=== PATIENT | female | born 1945 | race Caucasian/White ===

== ENCOUNTER → 2016-08-31 | Outpatient (CLI) | payer MEDICARE ==
--- NOTE | 2016-09-01 11:10 | MM ---
Reason for exam: screening (asymptomatic). Last mammogram was performed 6 months ago. History: Patient is postmenopausal. Benign MG stereo VAD BX LT of the left breast, September 04, 2015. Physical Findings: A clinical breast exam by your physician is recommended on an annual basis and results should be correlated with mammographic findings. MG 3D Screening Mammo W/Cad Bilateral CC and MLO view(s) were taken. Prior study comparison: August 25, 2015, bilateral MG 3d screening mammo w/cad. August 01, 2013, bilateral digital screening mammo w/CAD. There are scattered fibroglandular densities. Finding: There are typically benign vascular, round calcifications in both breasts. Previous mammotome biopsy in the left breast. There is no discrete abnormality. ASSESSMENT: Benign, BI-RAD 2 RECOMMENDATION: Routine screening mammogram of both breasts in 1 year.
== END | disposition home or self-care (01) ==
LOC: RADMAMWWP 09:41
PROVIDERS: ATTEND Family Medicine
DX: Z12.31 Encounter for screening mammogram for malignant neoplasm of breast (principal)
CPT/HCPCS: 77063; G0202

== ENCOUNTER → 2016-09-16 | Outpatient (CLI) | payer MEDICARE ==
--- NOTE | 2016-09-16 20:21 | PN ---
DATE OF SERVICE: 09/16/2016 70-year-old lady has been followed in the sleep center for treatment of obstructive sleep apnea-hypopnea syndrome. Patient continued to use her CPAP equipment every night for the whole night without significant problems. No snoring with the machine. No sleepiness during the day. [place] Sleepiness Scale is 4. I have seen the patient's CPAP unit. CPAP pressure is 8 cm of water. ( ) and automatic regimen. Usage is 100% of the time more than 4 hours. Leak from the mask is up to 10 L/min, which is acceptable. Apnea-hypopnea index reading is 2.3 for the last month, which is normal range. Medications: 1. Aspirin. 2. ( ). 3. Flonase. 4. Hydrochlorothiazide. 5. ( ). 6. Lisinopril. 7. Methotrexate. 8. Norvasc. 9. Tylenol. 10. Vitamin D3 supplement. 11. Zantac. During the physical exam, the patient is in no distress. BP 141/64, HR 66, RR 16. Height 64 inches. Weight 185. BMI 31.7. Temperature 97.7. Oxygen saturation at room air 95%. HEENT: Oropharynx moderately low position of soft palate. ABDOMEN: Slightly obese. GENERAL: A pleasant patient without any distress. VITAL SIGNS: BP, HR, RR, weight, body mass index. HEENT: PERRLA, EOMI. Evaluation of oropharynx showed tongue protrudes midline. Neck: Supple. No JVD. Thyroid is not palpable. LUNGS: Clear to percussion and to auscultation. Good air exchange. No wheezing or rhonchi. HEART: S1, S2 regular. No murmurs, gallops, or rubs. EXTREMITIES: No clubbing or cyanosis. PLATINUMSMITH: Awake, alert, and oriented x3. Cranial nerves 2 to 7 intact. There is no fasciculation or atrophy noted. No focal deficits observed. IMPRESSION: oriented x3. Cranial nerves II to VII intact moist and pink. IMPRESSION: 1. Obstructive sleep apnea-hypopnea syndrome. Patient demonstrated 100% compliance with treatment benefiting from treatment. 2. Rheumatoid arthritis. 3. Hypertension. 4. Acid reflux. 5. Mild obesity. Patient increased her weight by 4 pounds comparing with the previous visit one year ago. PLAN: 1. Continue treatment with CPAP every night for the whole night. 2. Losing weight. 3. Sleep hygiene with regular time in bed for at least 8 hours. 4. No driving if feeling any sleepiness. 5. Prescription for all necessary CPAP supplies, including mask, tube and filters. Thank you very much for allowing me to participate in the patient's care. Sincerely, Jimmy Godinez MD, PhD, FAASM. Diplomat of [place] [employer], Sleep Medicine Board by [place] [employer] [place] [employer] Assistant Producer of [facility] [place]
== END | disposition home or self-care (01) ==
LOC: SLEEP 14:37
PROVIDERS: ATTEND Internal Medicine
DX: G47.33 Obstructive sleep apnea (adult) (pediatric) (principal); M06.9 Rheumatoid arthritis, unspecified; I10 Essential (primary) hypertension; K21.9 Gastro-esophageal reflux disease without esophagitis; E66.9 Obesity, unspecified; Z68.31 Body mass index [BMI] 31.0-31.9, adult; Z79.899 Other long term (current) drug therapy

== ENCOUNTER → 2017-11-24 | Outpatient (CLI) | payer MEDICARE ==
--- NOTE | 2017-11-28 08:18 | MM ---
Reason for exam: screening (asymptomatic). Last mammogram was performed 1 year and 3 months ago. History: Patient is postmenopausal. Benign MG stereo VAD BX LT of the left breast, September 04, 2015. Physical Findings: A clinical breast exam by your physician is recommended on an annual basis and results should be correlated with mammographic findings. MG 3D Screening Mammo W/Cad Bilateral CC and MLO view(s) were taken. Prior study comparison: August 31, 2016, bilateral MG 3d screening mammo w/cad. March 10, 2016, left breast MG 3d diag mammo w/cad LT. The breast tissue is heterogeneously dense. This may lower the sensitivity of mammography. Finding: There is a probable benign, high architectural distortion located 5 cm from the nipple in the upper quadrant, middle position of the right breast, spreads out on tomography, likely present previously, not seen on CC view. New finding since August 31, 2016 and March 10, 2016. ASSESSMENT: Probably benign, BI-RAD 3 RECOMMENDATION: Follow-up diagnostic mammogram of the right breast in 6 months.
== END | disposition home or self-care (01) ==
LOC: RADMAMWWP 10:05
PROVIDERS: ATTEND Family Medicine
DX: Z12.31 Encounter for screening mammogram for malignant neoplasm of breast (principal)
CPT/HCPCS: 77063; 77067

== ENCOUNTER → 2017-11-24 | Outpatient (CLI) | payer MEDICARE ==
--- NOTE | 2017-11-24 12:21 | SFUN ---
SLEEP CENTER FOLLOW UP NOTE DATE OF SERVICE: 11/24/2017 This 72-year-old lady who looks younger than her age, has been followed in the sleep center for obstructive sleep apnea-hypopnea syndrome. The patient continued to use her CPAP equipment every night for the whole night without problems related to mask, fitting tube or humidification. [place] Sleepiness Scale at 8. I checked the patient's CPAP unit. CPAP pressure 8 cm of water. Leak is only 7 L/minute, which is normal range. Apnea-hypopnea index 2.0, which is totally normal. MEDICATIONS: Aspirin, Flonase, hydrochlorothiazide, lisinopril, methotrexate, Norvasc, Tylenol, vitamin D3 supplement, Zantac. PHYSICAL EXAMINATION: During physical exam, patient in no distress. VITAL SIGNS: BP 147/74, HR 61, RR 16, height 5 feet 5 inches, weight 184.0, BMI 30.6, temperature 97.9, oxygen saturation at room air 98%. HEENT: PERRLA, EOMI. Oropharynx moderately low position of soft palate. NECK: Supple, no JVD. Thyroid is not palpable. LUNGS Clear to percussion and to auscultation. Good air exchange. No wheezing or rhonchi. HEART: S1, S2 regular. No murmurs, gallops, or rubs. ABDOMEN: Soft and nontender. Bowel sounds are present. No organomegaly appreciated. EXTREMITIES: No clubbing or cyanosis. RECORDINGS LIBRARIAN: Awake, alert, and oriented X3. Cranial nerves 2 to 7 intact. There is no fasciculation or atrophy. noted. No focal deficits observed. IMPRESSION: 1. Obstructive sleep apnea-hypopnea syndrome. The patient demonstrated 100% compliance with treatment benefitting from treatment. 2. Hypertension. 3. Rheumatoid arthritis. 4. Acid reflux. 5. Mild obesity. PLAN: 1. Patient will continue to use her CPAP equipment every night for the whole night. 2. Losing weight. The patient lost her weight pounds compared to the previous visit. 3. Sleep hygiene with the regular time in bed for 8 hours. 4. No driving if feeling any sleepiness. 5. Prescription for all necessary CPAP supplies. 6. Followup visit in 1 year or earlier if patient has any problems. Thank you very much for allowing me to participate in management of your patient. Sincerely. Jimmy Godinez MD, PhD, FAASM Diplomat of [place] [employer] [place] [employer] Telephone Directory Distributor Driver of [facility] [place] MMAMBARL / NANDON: [id number] /
== END | disposition home or self-care (01) ==
LOC: SLEEP 11:07
PROVIDERS: ATTEND Internal Medicine
DX: G47.33 Obstructive sleep apnea (adult) (pediatric) (principal); I10 Essential (primary) hypertension; M06.9 Rheumatoid arthritis, unspecified; K21.9 Gastro-esophageal reflux disease without esophagitis; E66.9 Obesity, unspecified; Z68.30 Body mass index [BMI] 30.0-30.9, adult; Z79.82 Long term (current) use of aspirin; Z79.899 Other long term (current) drug therapy

== ENCOUNTER → 2018-03-21 | Outpatient (CLI) | payer MEDICARE ==
--- NOTE | 2018-03-21 14:07 | BD ---
EXAMINATION TYPE: Axial Bone Density DATE OF EXAM: 03/21/2018 Comparison: Prior DEXA bone scan August 05, 2014 CLINICAL HISTORY: Height: 64 Weight: 176 FRAX RISK QUESTIONS: Alcohol (3 or more units per day): no Family History (Parent hip fracture): yes, mother Glucocorticoids (More than 3mos): no (Ex: prednisone, prednisolone, methylprednisolone, dexamethasone, and hydrocortisone). History of Fracture in Adulthood: yes Secondary Osteoporosis: 1. Type 1 Diabetes: no 2. Hyperthyroidism: no 3. Menopause before 45: no 4. Malnutrition: no 5. Chronic liver disease: no Rheumatoid Arthritis: yes Current Tobacco Use: no RISK FACTORS HISTORY OF: Wrist Fracture: yes, right Surgery to Wrist (right): yes When: 2003 Family History of Osteoporosis: possibly Active: yes Diet low in dairy products/other sources of calcium: no Postmenopausal woman: yes Take estrogen and/or progesterone medications: no Lost more than 2 inches in height since high school: unsure, states height may have been 66 inches at one time Frequent falls: no Poor Health: no Hyperparathyroidism: no Adrenal Insufficiency: no MEDICATIONS: Prednisone or other steroids: no Thyroid Medications: no Osteoporosis Medications: not now; used Fosamax at one time Additional Medications: Vitamin D, Flonase, C-Pap, Evoxac, Hydrochlorothiazide, Lisinopril, Methotrex ate, Mycophenolate, Norvasc, Zantac Additional History: EXAM MEASUREMENTS: Bone mineral densitometry was performed using the Fitzeal System. Bone mineral density as measured about the Lumbar spine is: ----- L1-L4(G/cm2): 0.969 T Score Values are as follows: ----- L2: -2.1 ----- L3: -2.0 ----- L4: -1.1 ----- L1-L4: -1.8 Bone mineral density has: Increased 1.8% since study of: 08/05/2014 Bone mineral density about the R hip (g/cm2): 0.878 Bone mineral density about the L hip (g/cm2): 0.858 T Score values are as follows: -----R Neck: -1.1 -----L Neck: -1.3 -----R Total: -0.5 -----L Total: -0.5 Bone mineral density has: Decreased -0.6% since study of: 08/05/2014 IMPRESSION: Osteopenia (T Score between -2.5 and -1) remains present and low back and both hips. There remains slightly increased risk of fracture and the patient may be considered for treatment. Re-Screen 2-5 years. NOTE: T-SCORE=SD OF THE YOUNG ADULT MEAN.
== END | disposition home or self-care (01) ==
LOC: RADBDWWP 10:20
PROVIDERS: ATTEND Family Medicine
DX: M85.89 Other specified disorders of bone density and structure, multiple sites (principal)
CPT/HCPCS: 77080

== ENCOUNTER → 2018-05-29 | Outpatient (CLI) | payer MEDICARE ==
--- NOTE | 2018-05-29 11:44 | MM ---
Reason for exam: follow-up at short interval from prior study. Last mammogram was performed 6 months ago. History: Patient is postmenopausal. Benign MG stereo VAD BX LT of the left breast, September 04, 2015. Physical Findings: Nurse did not find any significant physical abnormalities on exam. MG 3D Diag Mammo W/Cad RT CC and MLO view(s) were taken of the right breast. Prior study comparison: November 24, 2017, bilateral MG 3d screening mammo w/cad. August 31, 2016, bilateral MG 3d screening mammo w/cad. There are scattered fibroglandular densities. The previous superior right breast asymmetric density has resolved. No significant new findings when compared with previous films. These results were verbally communicated with the patient and result sheet given to the patient on 05/29/18. ASSESSMENT: Negative, BI-RAD 1 RECOMMENDATION: Return to routine screening mammogram schedule for both breasts. Back on schedule.
== END | disposition home or self-care (01) ==
LOC: RADMAMWWP 10:28
PROVIDERS: ATTEND Family Medicine
DX: R92.2 Inconclusive mammogram (principal)
CPT/HCPCS: 77065; G0279; 77061

== ENCOUNTER → 2019-01-09 | Outpatient (CLI) | payer MEDICARE ==
--- NOTE | 2019-01-11 11:59 | MM ---
Reason for exam: screening (asymptomatic). Last mammogram was performed 7 months ago. History: Patient is postmenopausal. Benign MG stereo VAD BX LT of the left breast, September 04, 2015. Physical Findings: A clinical breast exam by your physician is recommended on an annual basis and results should be correlated with mammographic findings. MG 3D Screening Mammo W/Cad Bilateral CC and MLO view(s) were taken. Prior study comparison: May 29, 2018, right breast MG 3d diag mammo w/cad RT. November 24, 2017, bilateral MG 3d screening mammo w/cad. There are scattered fibroglandular densities. Previous mammotome biopsy in the left breast. No significant changes when compared with prior studies. ASSESSMENT: Negative, BI-RAD 1 RECOMMENDATION: Routine screening mammogram of both breasts in 1 year.
== END | disposition home or self-care (01) ==
LOC: RADMAMWWP 10:13
PROVIDERS: ATTEND Family Medicine
DX: Z12.31 Encounter for screening mammogram for malignant neoplasm of breast (principal)
CPT/HCPCS: 77063; 77067

== ENCOUNTER → 2019-08-02 | Outpatient (CLI) | payer MEDICARE ==
--- NOTE | 2019-08-02 15:22 | PN ---
PROGRESS NOTE DATE OF SERVICE: 08/02/2019 A 73-year-old lady had been followed in the Sleep Center for treatment of obstructive sleep apnea-hypopnea syndrome. The patient continued to use CPAP equipment every night for the full night without significant problems related to mask fitting, pressure, and humidification. No snoring with the machine. [place] Sleepiness Scale today is 2 which is absolutely perfect. I checked CPAP unit. Pressure is 8 cm of water. The patient is using equipment 100% of night for more than four hours, with average usage eight hours per night. Leak is only 4 liters per minute. Apnea-hypopnea index only 1.9, is absolutely normal. MEDICATIONS: Flonase, hydrochlorothiazide, lisinopril, methotrexate, Norvasc, aspirin, Tylenol, vitamin D3 supplement, Zantac. PHYSICAL EXAMINATION: GENERAL: The patient is in no distress. VITAL SIGNS: BP 158/75, HR 68, RR 16, height 5 feet 4.5 inches, weight 192 pounds, body mass index 32.4, the patient increased her weight around 8 pounds comparing to the previous visit, temperature 98.2, oxygen saturation on room air 97%. HEENT: Oropharynx low position of soft palate. Mallampati III. ABDOMEN: Slightly obese. NECK: Supple, no JVD. Thyroid is not palpable. LUNGS: Clear to percussion and to auscultation. Good air exchange. No wheezing or rhonchi. HEART: S1, S2 regular. No murmurs, gallops, or rubs. EXTREMITIES: No clubbing or cyanosis. POWER GENERATION PLANT OPERATOR: Awake, alert, and oriented X3. Cranial nerves 2 to 7 intact. There is no fasciculation or atrophy. noted. No focal deficits observed. IMPRESSION: 1. Obstructive sleep apnea-hypopnea syndrome. The patient demonstrated 100% compliance with treatment benefiting from treatment. 2. Hypertension. 3. Rheumatoid arthritis. 4. Obesity. 5. Acid reflux. PLAN: 1. The patient will continue to use CPAP equipment every night for the whole night. 2. Prescription for all necessary CPAP supplies including nasal pillow mask, tube, filters. 3. Losing weight. 4. Sleep hygiene with regular time in bed for at least 7.5 to 8 hours. 5. No driving if feeling sleepiness. Thank you very much for allowing me to participate in management of your patient. Sincerely, Jimmy Godinez MD, PhD, FAASM Diplomat of [place] [employer] Specialties [place] [employer] Medicine Cotton Stomper of [facility] [place] MMJORDANA / ROBERTO: [id number] /
== END | disposition home or self-care (01) ==
LOC: SLEEP 13:24
PROVIDERS: ATTEND Internal Medicine
DX: G47.33 Obstructive sleep apnea (adult) (pediatric) (principal); I10 Essential (primary) hypertension; M06.9 Rheumatoid arthritis, unspecified; E66.9 Obesity, unspecified; K21.9 Gastro-esophageal reflux disease without esophagitis; Z68.32 Body mass index [BMI] 32.0-32.9, adult; Z99.89 Dependence on other enabling machines and devices; Z79.51 Long term (current) use of inhaled steroids; Z79.82 Long term (current) use of aspirin; Z79.899 Other long term (current) drug therapy

== ENCOUNTER → 2020-01-31 | Outpatient (CLI) | payer MEDICARE ==
--- NOTE | 2020-02-01 01:57 | SFUN ---
SLEEP CENTER FOLLOW UP NOTE DATE OF SERVICE: 01/31/2020. This 74-year-old lady has been followed in Sleep Center for treatment of obstructive sleep apnea-hypopnea syndrome. The patient continued to use her CPAP equipment every night for the whole night. No snoring with the machine. [place] Sleepiness Scale today is 4, which is normal. I checked her CPAP unit pressure is 8 cm of water, usage 30 out of 30 nights for more than 4 hours with average usage 8 hours per night. Leak 2 L/minute which is perfect. Apnea-hypopnea index 2.2 absolutely normal. PRESENT MEDICATIONS: Evoxac, folic acid, hydrochlorothiazide, hydroxychloroquine, lisinopril, methotrexate, methylprednisolone, mycophenolate, Norvasc, ophthalmic solution, ophthalmic , Tylenol on p.r.n. basis. PHYSICAL EXAMINATION: GENERAL: Patient in no distress. VITAL SIGNS: BP 175/64, but not any chest pain, headache, or any other discomfort, no dizziness. HR 69, RR 16, temperature 98.0, oxygen saturation at room air 97%. HEENT: PERRLA, EOMI. Oropharynx low position of soft palate, Mallampati 3. NECK: Supple, no JVD. Thyroid is not palpable. LUNGS: Clear to percussion and to auscultation. Good air exchange. No wheezing or rhonchi. HEART: S1, S2 regular. No murmurs, gallops, or rubs. ABDOMEN: Slightly obese. EXTREMITIES: No clubbing or cyanosis. RUBBER AND POUNDER: Awake, alert, and oriented X3. Cranial nerves 2 to 7 intact. There is no fasciculation or atrophy. noted. No focal deficits observed. IMPRESSION: 1. Obstructive sleep apnea-hypopnea syndrome. Patient demonstrated great compliance with treatment benefitting from treatment. 2. Hypertension. 3. Rheumatoid arthritis. 4. Acid reflux. 5. Obesity. PLAN: 1. Patient will continue to use PAP equipment every night for the whole night. 2. Sleep hygiene with regular time in bed for at least 7-1/2 to 8 hours. 3. Precautions related to driving. No driving if feeling sleepiness. 4. I will maintain all necessary prescription for PAP supplies including mask, tube, filters. 5. Watching weight. 6. No driving if feeling sleepiness. 7. Follow-up visit in 6 months or earlier if patient has any problems. Thank you very much for allowing me to participate in management of your patient. Sincerely, Jimmy Godinez MD, PhD, FAASM Diplomat of [place] [employer] Specialties [place] Board of Internal Medicine [employer] Supervisor of [facility] [place] MMODL / ROBERTO: [phone] /
== END | disposition home or self-care (01) ==
LOC: SLEEP 08:55
PROVIDERS: ATTEND Internal Medicine
DX: G47.33 Obstructive sleep apnea (adult) (pediatric) (principal); I10 Essential (primary) hypertension; K21.9 Gastro-esophageal reflux disease without esophagitis; E66.9 Obesity, unspecified; M06.9 Rheumatoid arthritis, unspecified; Z79.899 Other long term (current) drug therapy; Z99.89 Dependence on other enabling machines and devices

== ENCOUNTER → 2020-03-24 | Outpatient (CLI) | payer MEDICARE ==
--- NOTE | 2020-03-24 19:14 | BD ---
EXAMINATION TYPE: Axial Bone Density DATE OF EXAM: 03/24/2020 COMPARISON: 03/21/2018 CLINICAL HISTORY: Post menopausal screening Height: 63.5 IN Weight: 189 LBS FRAX RISK QUESTIONS: Family History (Parent hip fracture): YES MOTHER History of Fracture in Adulthood: RT WRIST AGE 66 Secondary Osteoporosis: Rheumatoid Arthritis: YES RISK FACTORS HISTORY OF: History of Wrist Fracture: RT WRIST AGE 68 Active: YES Postmenopausal woman: PARTIAL HYST AGE 57 Lost more than 2 inches in height since high school: YES 06/14" MEDICATIONS: Additional Medications: CALCIUM, VIT D, DESONIDE, EVOXAC, FOLIC ACID, HCTZ, HYDROXYCHLOROQUINE, LISIN OPRIL, METHOTREXATE, CELLCEPT, NORVASC, EYE DROP, RESTASIS, TYLE EXAM MEASUREMENTS: Bone mineral densitometry was performed using the Transcriptic System. Bone mineral density as measured about the Lumbar spine is: ----- L1-L4(G/cm2): 0.965 T Score Values are as follows: ----- L2: -2.1 ----- L3: -1.8 ----- L4: -1.4 ----- L1-L4: -1.8 Bone mineral density has: NO CHANGE 0.0% since study of: 03/21/2018 Bone mineral density about the R hip (g/cm2): 0.848 Bone mineral density about the L hip (g/cm2): 0.853 T Score values are as follows: -----R Neck: -1.4 -----L Neck: -1.3 -----R Total: -0.5 -----L Total: -0.4 Bone mineral density has: Increased 0.1% since study of: 03/21/2018 IMPRESSION: Osteopenia (T Score between -2.5 and -1). There is slightly increased risk of fracture and the patient may be considered for treatment. Re-Screen 2-5 years. NOTE: T-SCORE=SD OF THE YOUNG ADULT MEAN.
--- NOTE | 2020-03-26 11:26 | MM ---
Reason for exam: screening (asymptomatic). Last mammogram was performed 1 year and 2 months ago. History: Patient is postmenopausal. Benign MG stereo VAD BX LT of the left breast, September 04, 2015. Physical Findings: A clinical breast exam by your physician is recommended on an annual basis and results should be correlated with mammographic findings. MG 3D Screening Mammo W/Cad Bilateral CC and MLO view(s) were taken. Prior study comparison: January 09, 2019, bilateral MG 3d screening mammo w/cad. May 29, 2018, right breast MG 3d diag mammo w/cad RT. There are scattered fibroglandular densities. No significant changes when compared with prior studies. ASSESSMENT: Benign, BI-RAD 2 RECOMMENDATION: Routine screening mammogram of both breasts in 1 year.
== END | disposition home or self-care (01) ==
LOC: RADMAMWWP 10:39
PROVIDERS: ATTEND Family Medicine
DX: Z12.31 Encounter for screening mammogram for malignant neoplasm of breast (principal); M85.88 Other specified disorders of bone density and structure, other site
CPT/HCPCS: 77063; 77067; 77080

== ENCOUNTER → 2020-10-09 | Outpatient (CLI) | payer MEDICARE ==
--- NOTE | 2020-10-09 15:39 | SFUN ---
SLEEP CENTER FOLLOW UP NOTE DATE OF SERVICE: 10/09/2020 The 74-year-old lady has been followed in Sleep Center for treatment of obstructive sleep apnea-hypopnea syndrome. The patient continues to use her CPAP equipment every night for the whole night. Sometimes her machine becomes noisy during the nighttime. [place] Sleepiness Scale today is 6, which is in normal range. I checked her CPAP unit. CPAP pressure is 8 cm of water, usage 30/30 nights for more than 4 hours, average 8.3 hours per night. Leak is 5 L/minute, which is normal. Apnea- hypopnea index is 2.2. EPR is at the level of 3, humidity at the level of 4. MEDICATIONS: 1. Evoxac 30 mg twice a day. 2. Hydrochlorothiazide 25 mg once a day. 3. Hydrochloroquine 200 mg 2 tablets once a day. 4. Iron 65 mg one tablet once a day. 5. Lisinopril 20 mg twice a day. 6. Methotrexate 2.5 mg 6 tablets once a week. 7. Mycophenolate mofetil 500 mg 2 tablets in the morning and 3 in the evening. 8. Norvasc 5 mg twice a day. 9. Zantac 150 mg twice a day as needed. 10.Eyedrops. PHYSICAL EXAMINATION: GENERAL: A pleasant patient in no distress. VITAL SIGNS: BP 163/63, HR 75, RR 12, height 5 feet 4-1/2 inches, weight 188 pounds with body mass index 31.7, temperature 97.6, oxygen saturation at room air 100%. HEENT: PERRLA, EOMI. Evaluation of oropharynx showed tongue protrudes midline. Low position of soft palate. Mallampati III. NECK: Supple. No JVD. Thyroid is not palpable. LUNGS: Clear to percussion and to auscultation. Good air exchange. No wheezing or rhonchi. HEART: S1, S2 regular. No murmurs, gallops or rubs. ABDOMEN: Soft and nontender. Bowel sounds are present. No organomegaly appreciated. EXTREMITIES: No clubbing or cyanosis. PROPERTY DISPOSAL MANAGER: Awake, alert, and oriented X3. Cranial nerves 2 to 7 intact. There is no fasciculation or atrophy. noted. No focal deficits observed. IMPRESSION: 1. Obstructive sleep apnea-hypopnea syndrome. Patient demonstrated 100% compliance with treatment, benefitting from treatment. CPAP unit became noisy during the nighttime. 2. Hypertension. 3. Rheumatoid arthritis. 4. Acid reflux. 5. Mild obesity. BMI 31.7. PLAN: 1. Prescription to replace CPAP unit. CPAP pressure 8 cm of water. EPR 3. 2. Patient will continue to use PAP equipment every night for the whole night. 3. Sleep hygiene with regular time in bed for at least 7-1/2 to 8 hours. 4. Precautions related to driving. No driving if feeling sleepiness. 5. I will maintain all necessary prescription for PAP supplies including mask, tube, filters. 6. Watching weight. Thank you very much for allowing me to participate in the management of your patient. Sincerely, Jimmy Godinez MD, PhD, FAASM Diplomat of [place] [employer] Special[employer] [place] [employer] of [employer] Medicine Assembler For Puller Over Hand of [facility] [place] MMAMBARL / ROBERTO: [id number] /
== END ==
LOC: SLEEP 10:49
PROVIDERS: ATTEND Internal Medicine
DX: G47.33 Obstructive sleep apnea (adult) (pediatric) (principal); K21.9 Gastro-esophageal reflux disease without esophagitis; I10 Essential (primary) hypertension; M06.9 Rheumatoid arthritis, unspecified; E66.9 Obesity, unspecified; Z68.31 Body mass index [BMI] 31.0-31.9, adult

== ENCOUNTER → 2021-01-07 | Outpatient (CLI) | payer MEDICARE ==
--- NOTE | 2021-01-08 09:11 | SFUN ---
SLEEP CENTER FOLLOW UP NOTE DATE OF SERVICE: 01/07/2021. 75-year-old lady has been followed in [facility] Center for treatment of obstructive sleep apnea-hypopnea syndrome. The patient received her new CPAP unit recently and this is her followup visit to evaluation, her compliance and clinical response on treatment with new CPAP equipment. The patient is able to use her CPAP equipment every night for the whole night. No problems with the machine. She is getting all her supplies in time. I checked her CPAP unit. Pressure is 8 cm of water. Usage is 30/30 nights for more than 4 hours, average 8.3 hours per night. Leak is 6 L/minute, which is normal range. Apnea-hypopnea index is 1.9, which is normal. MEDICATIONS: 1. Hydrochlorothiazide 25 mg once a day. 2. Hydrochloroquine 200 mg 2 tablets once a day. 3. Iron supplement once a day. 4. Lisinopril 20 mg twice a day. 5. Methotrexate 2.5 mg. 6. 500 mg. 7. Norvasc 5 mg twice a day. 8. Zantac 100 mg as needed. 9. PHYSICAL EXAMINATION: GENERAL: Patient in no distress. BP 163/76, HR 70, weight 197.6, temperature 97.4, oxygen saturation at room air 98%. HEENT: PERRLA, EOMI. Oropharynx low position of soft palate, Mallampati 3. NECK: Supple, no JVD. Thyroid is not palpable. LUNGS: Clear to percussion and to auscultation. Good air exchange. No wheezing or rhonchi. HEART: S1, S2 regular. No murmurs, gallops, or rubs. ABDOMEN: Soft and nontender. Bowel sounds are present. No organomegaly appreciated. EXTREMITIES: No clubbing or cyanosis. [employer]ET[employer]: Awake, alert, and oriented X3. Cranial nerves 2 to 7 intact. There is no fasciculation or atrophy. noted. No focal deficits observed. IMPRESSION: 1. Obstructive sleep apnea-hypopnea syndrome. Patient demonstrated 100% compliance with treatment, benefitting from treatment. Her new CPAP unit has been checked, works well. 2. Hypertension. 3. Rheumatoid arthritis. 4. Acid reflux. 5. Anxiety. 6. Mild obesity. PLAN: 1. Patient will continue to use PAP equipment every night for the whole night. 2. Sleep hygiene with regular time in bed for at least 7-1/2 to 8 hours. 3. Precautions related to driving. No driving if feeling sleepiness. 4. I will maintain all necessary prescription for PAP supplies including mask, tube, filters. 5. Watching weight. 6. Follow-up visit in 6 months or earlier if patient has any problems. Thank you very much for allowing me to participate in management of your patient. Sincerely, Jimmy Godinez MD, PhD, FAASM Diplomat of [employer] Sleep Medicine [employer] [facility] [place] MMODL / IJN: [id number] /